=== PATIENT | female | born 1970 | race Caucasian/White ===

== ENCOUNTER 2016-07-20 16:58 | Emergency (ER) | payer MEDICAID ==
[~2016-07-20] VITALS: Ht 160 cm; Wt 118.2 kg
[~2016-07-20 16:58] MED LIST: AMOXICILLIN/CLA1 TA1 PO; APRESOLINE 25MG25 MG PO; ATARAX 25MG25 MG/TAB PO; AZO-CRANBERRY450 MG PO; BUSPAR10 MG PO; CATAPRES 0.1MG0.1 MG PO; CEPHALEXIN500 M1 PO; CIPRODEX; CLEOCIN HC150 MG/CAP PO; DIFLUCAN200 MG PO; DOXYCYCLINE 10100 MG PO; FLEXERIL 1010 MG/TAB PO; LAMICTAL 25MG T25 MG PO; NORCO 325 MG-51 TAB PO; NORCO 325 MG-7.1 TAB PO; OMNICEF 300MG300 MG PO; PRISTIQ25 MG PO; PYRIDIUM200 M1 PO
[2016-07-20 17:09] VITALS: TEMP 98.6
[2016-07-20] MEDS ORDERED: BUSPAR10 MG PO (17:14)
[2016-07-20] MEDS ORDERED: LAMICTAL200 MG PO (17:14)
[2016-07-20 17:59] LABS: BASO # 0.1 (0.0-0.2); EOS # 0.4 (0.0-0.7); EOS % 3.9 % (0-4.0); GRAN # 6.4 (1.4-6.5); GRAN % 61.6 % (42.2-75.2); HEMATOCRIT 42.9 % (37.0-47.0); HEMOGLOBIN 13.9 g/dl (12.5-16.0); LYMPH # 2.9 (1.2-3.4); MEAN CELL VOLUME 89 fl (80.0-100.0); MEAN CORPUSCULAR HEMOGLOBIN 29 pg (27.0-31.0); MEAN CORPUSCULAR HGB CONC 32 g/dl (33.0-37.0); MEAN PLATELET VOLUME 11.7 fl (7.4-10.4); MONO # 0.6 (0.1-0.6); MONO % 5.3 % (1.7-9.3); PLATELET COUNT 322 K/mm3 (130-400); RED BLOOD COUNT 4.85 M/mm3 (4.10-5.30); REDCELL DISTRIBUTION WIDTH-CV 14.5 % (11.5-14.5); WHITE BLOOD COUNT 10.4 K/mm3 (4.8-10.8)
[2016-07-20 18:02] LABS: PROTHROMBIN TIME 11.5 SECONDS (9.7-12.8)
[2016-07-20] MEDS ORDERED: AMOXICILLIN 8751 TAB PO (19:10)
[2016-07-20 19:16] VITALS: BP 132/72; PULSE 80
== END 2016-07-20 19:16 | disposition home or self-care (01) ==
LOC: COL.ER 16:58
PROVIDERS: Family Medicine
DX: R51 Headache (principal); M79.661 Pain in right lower leg; Z79.01 Long term (current) use of anticoagulants; D68.51 Activated protein C resistance; F17.210 Nicotine dependence, cigarettes, uncomplicated; Z86.718 Personal history of other venous thrombosis and embolism
CPT/HCPCS: J2550

== ENCOUNTER → 2016-08-19 | Outpatient (CLI) | payer MEDICAID ==
[~2016-08-19] MED LIST changes: +AMOXICILLIN 8751 TAB PO; +LAMICTAL200 MG PO
[2016-08-19 09:09] LABS: BASO # 0.1 (0.0-0.2); EOS # 0.3 (0.0-0.7); EOS % 3.5 % (0-4.0); GRAN # 5.9 (1.4-6.5); GRAN % 64.5 % (42.2-75.2); HEMATOCRIT 43.2 % (37.0-47.0); LYMPH # 2.3 (1.2-3.4); LYMPH % 25.4 % (20.0-51.0); MEAN CELL VOLUME 88 fl (80.0-100.0); MEAN CORPUSCULAR HEMOGLOBIN 29 pg (27.0-31.0); MEAN CORPUSCULAR HGB CONC 32 g/dl (33.0-37.0); MEAN PLATELET VOLUME 11.9 fl (7.4-10.4); MONO # 0.5 (0.1-0.6); MONO % 5.4 % (1.7-9.3); PLATELET COUNT 270 K/mm3 (130-400); RED BLOOD COUNT 4.92 M/mm3 (4.10-5.30); REDCELL DISTRIBUTION WIDTH-CV 14.6 % (11.5-14.5); WHITE BLOOD COUNT 9.1 K/mm3 (4.8-10.8)
[2016-08-19 09:49] LABS: ADJUSTED CALCIUM 9.1 mg/dL (8.4-10.2); ALBUMIN 4.1 gm/dL (3.5-5.0); BILIRUBIN,TOTAL 0.6 mg/dL (0.0-1.0); CALCIUM 9.2 mg/dL (8.4-10.2); CREATININE, serum 0.79 mg/dL (0.52-1.25); TOTAL PROTEIN 7.7 gm/dL (6.4-8.2)
[2016-08-19 10:19] LABS: THYROID STIMULATING HORMONE 1.04 uIU/mL (0.465-4.680)
== END ==
LOC: COL.LAB 08:37
PROVIDERS: Nurse Practitioner
DX: Z79.899 Other long term (current) drug therapy (principal)

== ENCOUNTER 2018-11-11 20:00 | Emergency (ER) | payer MEDICAID ==
[~2018-11-11] VITALS: Ht 157.5 cm; Wt 112.7 kg
[2018-11-11 20:08] VITALS: BP 179/99; TEMP 98.5
[2018-11-11] MEDS ORDERED: GLUCOPHAGE500 MG/TAB PO (20:32)
[2018-11-11] MEDS ORDERED: HCTZ12.5TAB PO (20:32)
[2018-11-11] MEDS ORDERED: CEPHALEXIN500 M1 PO ×3 (21:13→23:54)
[2018-11-11] MEDS ORDERED: DOXYCYCLINE 10100 MG PO ×3 (21:13→23:54)
[2018-11-11 21:21] VITALS: PULSE 83
== END 2018-11-11 21:21 | disposition home or self-care (01) ==
LOC: COL.ER 20:00
DX: N61.1 Abscess of the breast and nipple (principal); H66.92 Otitis media, unspecified, left ear

== ENCOUNTER 2019-02-15 20:17 | Emergency (ER) | payer MEDICAID ==
[~2019-02-15] VITALS: Ht 160 cm; Wt 106.8 kg
[~2019-02-15 20:17] MED LIST changes: +GLUCOPHAGE500 MG/TAB PO; +HCTZ12.5TAB PO
[2019-02-15 20:41] VITALS: BP 142/92; TEMP 98.2
[2019-02-15] MEDS ORDERED: DOXYCYCLINE HY100 MG PO (22:17)
[2019-02-15] MEDS ORDERED: ANTIVERT 25MG25 MG PO (22:17)
[2019-02-15 22:37] VITALS: PULSE 87
[2019-02-19] MEDS ORDERED: AMOXICILLIN 8751 TAB PO (11:20)
== END 2019-02-15 22:37 | disposition home or self-care (01) ==
LOC: COL.ER 20:17
DX: H66.92 Otitis media, unspecified, left ear (principal); E66.9 Obesity, unspecified; F17.210 Nicotine dependence, cigarettes, uncomplicated; Z68.41 Body mass index [BMI] 40.0-44.9, adult; Z79.84 Long term (current) use of oral hypoglycemic drugs

== ENCOUNTER 2019-03-03 20:09 | Emergency (ER) | payer MEDICAID ==
[~2019-03-03] VITALS: Ht 160 cm; Wt 104.5 kg
[~2019-03-03 20:09] MED LIST changes: +ANTIVERT 25MG25 MG PO; +DOXYCYCLINE HY100 MG PO
[2019-03-03 20:16] VITALS: BP 136/91; PULSE 91; TEMP 97.5
== END 2019-03-03 21:08 | disposition left against medical advice (07) ==
LOC: COL.ER 20:09
DX: H92.01 Otalgia, right ear (principal)

== ENCOUNTER 2020-07-21 23:09 | Emergency (ER) | payer MEDICAID ==
[~2020-07-21] VITALS: Ht 160 cm; Wt 115.5 kg
[2020-07-21 23:13] VITALS: TEMP 98.7
[2020-07-21 23:55] LABS: BASO # 0.1 (0.0-0.2); BASO % 0.8 % (0.0-2.0); EOS # 0.4 (0.0-0.7); EOS % 3.3 % (0-4.0); GRAN # 7.1 (1.4-6.5); GRAN % 62.7 % (42.2-75.2); HEMATOCRIT 45.2 % (37.0-47.0); HEMOGLOBIN 14.6 g/dl (12.5-16.0); LYMPH % 26.9 % (20.0-51.0); MEAN CELL VOLUME 89 fl (80.0-100.0); MEAN CORPUSCULAR HEMOGLOBIN 29 pg (27.0-31.0); MEAN CORPUSCULAR HGB CONC 32 g/dl (33.0-37.0); MEAN PLATELET VOLUME 11.9 fl (7.4-10.4); MONO # 0.7 (0.1-0.6); MONO % 6.1 % (1.7-9.3); PLATELET COUNT 266 K/mm3 (130-400); RED BLOOD COUNT 5.09 M/mm3 (4.10-5.30); REDCELL DISTRIBUTION WIDTH-CV 14.7 % (11.5-14.5)
[2020-07-22 00:02] LABS: PROTHROMBIN TIME 11.1 SECONDS (9.7-12.8)
[2020-07-22 00:55] LABS: TROPONIN-I < 0.012 ng/mL (0.000-0.035)
[2020-07-22 01:25] VITALS: BP 142/70; PULSE 78
== END 2020-07-22 01:25 | disposition home or self-care (01) ==
LOC: COL.ER 23:09
PROVIDERS: Physician Assistant
DX: J44.9 Chronic obstructive pulmonary disease, unspecified (principal); I10 Essential (primary) hypertension; E66.9 Obesity, unspecified; Z20.822 Contact with and (suspected) exposure to COVID-19; Z88.6 Allergy status to analgesic agent; Z88.1 Allergy status to other antibiotic agents; Z79.84 Long term (current) use of oral hypoglycemic drugs; Z68.42 Body mass index [BMI] 45.0-49.9, adult
CPT/HCPCS: Q9967

== ENCOUNTER 2021-04-10 12:07 | Emergency (ER) | payer MEDICAID ==
[~2021-04-10] VITALS: Ht 160 cm; Wt 124.5 kg
[2021-04-10 12:15] VITALS: BP 133/80; TEMP 98.2
[2021-04-10 13:48] VITALS: PULSE 82
== END 2021-04-10 13:48 | disposition home or self-care (01) ==
LOC: COL.ER 12:07
DX: S63.92XA Sprain of unspecified part of left wrist and hand, initial encounter (principal); E11.9 Type 2 diabetes mellitus without complications; D68.2 Hereditary deficiency of other clotting factors; E66.9 Obesity, unspecified; F17.200 Nicotine dependence, unspecified, uncomplicated; Z68.42 Body mass index [BMI] 45.0-49.9, adult; Z79.84 Long term (current) use of oral hypoglycemic drugs; Z79.899 Other long term (current) drug therapy; W01.0XXA Fall on same level from slipping, tripping and stumbling without subsequent striking against object, initial encounter

== ENCOUNTER 2024-03-13 16:54 | Emergency (ER) | payer MEDICAID ==
[~2024-03-13] VITALS: Ht 157.5 cm; Wt 119.5 kg
[2024-03-13] MEDS ORDERED: Amoxicillin 500 MG CAP PO ONE (18:30)
[2024-03-13] MEDS ORDERED: AMOXICILLIN 50500 MG PO (18:35)
[2024-03-13 18:59] VITALS: BP 159/76; PULSE 85; TEMP 98.2
[2024-03-14] MEDS ORDERED: AMOXICILLIN 50500 MG PO (09:40)
== END 2024-03-13 18:59 | disposition home or self-care (01) ==
LOC: COL.ER 16:54
DX: H66.91 Otitis media, unspecified, right ear (principal); E66.9 Obesity, unspecified; Z88.1 Allergy status to other antibiotic agents; Z91.040 Latex allergy status; Z68.42 Body mass index [BMI] 45.0-49.9, adult